=== PATIENT | female | born 1945 | race Caucasian/White ===

== ENCOUNTER 2025-02-14 12:42 | Emergency (ER) | payer MEDICARE, OTHER, SELFPAY ==
[2025-02-14 12:52] VITALS: BP 195/112
[2025-02-14 13:22] LABS: % Eosinophils 1.9 % (0-6); % Immature Granulocytes 0.4 % (0-0.5); % Lymphocytes 21.4 % (20.5-51.1); % Monocytes 8.2 % (1.7-9.3); % Neutrophils 67.1 % (42.2-75.2); Absolute Basophils 0.1 10^3/uL (0-0.2); Absolute Eosinophils 0.1 10^3/uL (0-0.7); Absolute Lymphocytes 1.5 10^3/uL (1.2-3.4); Absolute Monocytes 0.6 10^3/uL (0.1-0.6); Absolute Neutrophils 4.6 10^3/uL (1.4-6.5); Hematocrit 43.6 % (37.0-47.0); Hemoglobin 14.8 g/dL (12.0-16.0); Mean Corp Hgb Conc. 33.9 g/dL (33.0-37.0); Mean Corpuscular Hgb 31.8 pg (27.0-31.0); Mean Corpuscular Volume 93.6 fL (81.0-99.0); Mean Platelet Volume 10.1 fL (7.4-10.4); Nucleated Red Blood Cells % 0 %; Platelet Count 192 10^3/uL (130-400); Red Blood Cell Count 4.66 10^6/uL (4.20-5.40); Red Cell Dist. Width 13.6 % (11.5-14.5); White Blood Cell Count 6.8 10^3/uL (4.8-10.8)
[2025-02-14 13:31] LABS: ALT (SGPT) 27 U/L (0-35); AST (SGOT) 34 U/L (14-36); Albumin 4.3 g/dl (3.5-5.0); Alkaline Phosphatase 114 U/L (38-126); Blood Urea Nitrogen 16 mg/dl (7-17); Calcium 9.8 mg/dl (8.4-10.2); Carbon Dioxide 31 mmol/L (22-30); Chloride 104 mmol/L (98-107); Glucose 111 mg/dl (70-99); Potassium 4.2 mmol/L (3.5-5.1); Sodium 140 mmol/L (135-145); Total Bilirubin 0.9 mg/dl (0.2-1.3); Total Protein 7.1 g/dl (6.3-8.2); eGFR > 60.00
[2025-02-14 13:32] VITALS: BMI 31.6
[2025-02-14 13:41] VITALS: BP 164/96
[2025-02-14 13:43] LABS: Troponin I < 0.012 ng/ml
[2025-02-14 14:00] VITALS: BP 159/97
--- NOTE | 2025-02-14 14:15 | ED.GENMED ---
History of Present Illness
General
Chief Complaint: Chest Pain
Source: patient
Exam Limitations: none
Time Seen by Provider: 02/14/25 13:43
Nursing documentation reviewed up to this point in time: agreed with
History of Present Illness
History of Present Illness:
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 Patient states that she now
feels much improved compared to last night. Patient also notes intermittent episodes of neck pain as well. She denies any trauma to the head or neck. Patient states that she was looking at wedding venues all day yesterday with her daughter and
reports that she felt like her neck might have been strained at that time. Patient also concerned that there may be a problem with her pacemaker as the discomfort is surrounding where the pacemaker is. Patient has never had this before. Patient
has no history of coronary artery disease or [place]. Her java web services developer is Dr. Richards with [facility] and she last saw him 2 months ago and had normal stress testing and is due to see him again in 1 year. Patient denies any dizziness or
lightheadedness, denies any syncopal episodes. She states that the pain is not exertional and it will come and go at random. She denies any fainting spells difficulty walking. Patient states that she lives alone but has her daughter and her
friends and her Bible study group who come to check on her frequently.
Review of Systems
Review of Systems
All Other Systems: ROS reviewed and negative except as documented in HPI and ROS
Phy Exam
Physical Exam
Physical Exam:
General: Patient is well appearing and in no acute distress; non-toxic
Skin: Warm and dry, no rashes or lesions
Head: Normocephalic, atraumatic
Eyes: Sclera non-icteric. EOMs intact.
Neck: No midline cervical spinal tenderness to palpation, no paraspinal tenderness
Cardiac: Regular rate and rhythm, no murmurs, no tenderness palpation of external chest wall
Peripheral Vascular: No lower extremity swelling or edema. 2+ radial pulses bilaterally.
Pulm: Normal respiratory effort. No wheezes, rales, rhonchi.
Neuro: CN II-XII intact, no focal neurologic deficits.
Psychiatric: Appropriate mood and affect.
Scores
Heart Score for Chest Pain Patients
STEMI patient?: No
History: Slightly or Non-Suspicious
ECG: Normal
Age: >/= 65 years
Risk Factors: 1 or 2 Risk Factors
Troponin: </= Normal Limit
Heart Score for Chest Pain Patients: 3
Heart Score Risk: 2.5% MACE over next 6 weeks
Course
Orders/Labs/Results
Orders:
Orders
02/14/25 12:42
EKG [Electrocardiogram (*1)] Urgent
Reason for Study: Chest Pain
02/14/25 12:43
EKG- Treatment ONCE
02/14/25 13:02
Complete Blood Count/With Diff Urgent
Comprehensive Metabolic Panel Urgent
Troponin I Urgent
02/14/25 13:44
Interrogate Pacemaker- Treatment ONCE
02/14/25 14:02
CR Chest - 2 Views Urgent
Comment:
Reason For Exam: left sided chest discomfort around pacemaker
Abnormal Lab Results
02/14/25
13:02
MCH 31.8 H pg
(27.0-31.0)
Carbon Dioxide 31 H mmol/L
(22-30)
Glucose 111 H mg/dl
(70-99)
02/14/25 13:02
02/14/25 13:02
Vital Signs
Initial and Last Documented VS:
Initial Vital Signs
Temp Pulse Resp BP Pulse Ox
97.6 F 97 18 195/112 97
02/14/25 12:52 02/14/25 12:52 02/14/25 12:52 02/14/25 12:52 02/14/25 12:52
Last Documented Vital Signs
Temp Pulse Resp BP Pulse Ox
97.6 F 82 18 159/97 98
02/14/25 12:52 02/14/25 14:15 02/14/25 12:52 02/14/25 14:00 02/14/25 14:00
MDM/Problems Addressed
Differential Diagnosis Includes:
Differentials include ACS, costochondritis, GERD, paracervical strain, dysrhythmia, pacemaker lead detachment,
MDM/Problems Addressed:
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 Patient was concerned last night that she may have been having heart
attack. She has no history of coronary artery disease. She does follow closely with her java web services developer Dr. Richards at [facility]. On physical exam she is well-appearing no acute distress her chest pain is not reproducible and her lungs are clear
bilaterally. Her CBC and CMP are unremarkable. Her troponin is undetectable. Chest x-ray shows no acute cardiopulmonary abnormality. Patient on reassessment states that she is unsure if she still has the discomfort. I had her sit up from her
bed and observe her ambulate throughout her room and she reports that she feels well and does not noticing the discomfort any longer. Reviewed case and EKG with my attending. Patient stable for discharge, patient states that she will call her
java web services developer and her primary for follow-up appointments. Pain could be related to muscular issue, doubt ACS, doubt PE. Did also obtain pacemaker study which was negative for any dysrhythmia and showed a normal functioning pacemaker.
*Pulse Oximetry
Patient hypoxic: no
*EKG
Interpreted by ED Provider?: Yes
EKG Intrepretation Date: 02/14/25
Interpretation: normal
Comparison EKG: no comparison EKG present
Heart Rate: 89
Rate: normal
*Critical Care Note
Total Time (30-74mins, 75-104mins- exclusive of procedures): Not Applicable
Data Reviewed
Review of Other/Old Records Reveals: Records (Reviewed [facility], no previous ER physician documentation to review) and Discharge Summary (No discharge summaries in [facility] to review)
Source: patient and records
Patient Management
Escalation/DeEscalation of care consider admission/obs:
Admit not indicated, patient stable for discharge
Update Note
Update Note:
Patient's blood pressure elevated at 195/112 upon arrival, resolved to 159/97 without intervention. I did mention the patient that her blood pressure was elevated today and she should follow-up with her primary, patient states that she does take
lisinopril and metoprolol.
ED Attending Note
-
Portions of this chart may have been created with voice recognition software.� Occasional wrong word or��sound alike� substitutions may have occurred due to the inherent limitations of voice recognition software.
Discharge Plan
Departure
Patient Disposition: Home (Routine Discharge)
Date of Disposition: 02/14/25
Time of Disposition: 15:09
Patient with high blood pressure during this ER visit?: Yes
Condition: Good
Discharge Problem:
Chest pain
Instructions: Chest pain, BLOOD PRESSURE
Referrals:
UNKNOWN - PT DOES,NOT KNOW [Unknown Provider] -
Activity Restrictions/Additional Instructions:
Your chest x-ray demonstrated that your pacemaker leads were in place. Your pace maker study showed no evidence of abnormal heart rhythms and is functioning normally.
Please call your primary care provider tomorrow to schedule a follow-up appointment for 1 week.
PLEASE RETURN EMERGENCY DEPARTMENT SHOULD YOU EXPERIENCE ACUTE WORSENING OR SYMPTOMS, LIGHTHEADEDNESS, DIZZINESS, HEADACHE, FAINTING SPELLS, SHORTNESS OF BREATH, RETURN OF YOUR CHEST PAIN, WEAKNESS ON 1 SIDE BODY VERSUS OTHER, DIFFICULTY AMBULATE,
BACK PAIN, BELLY PAIN, FEVERS OR CHILLS, OR ANY OTHER SIGNS OR SYMPTOMS WORRISOME TO YOU.
Interventions
Interventions:
*Risk Screen - Suicide Last Done: 02/14/25 13:38
*General Assessment Last Done: 02/14/25 13:32
*Neglect/Abuse Screening Last Done: 02/14/25 13:38
*ED- Fall Risk Assessment Last Done: 02/14/25 13:32
*ED COVID-19 Vaccine History Last Done: 02/14/25 13:32
*Nursing Disposition Last Done: 02/14/25 15:21
ED- Cardiac Assessment Last Done: 02/14/25 13:32
Discharge Date and Time
Discharge Date/Time: 02/14/25 15:22
Print Language: AFGHAN
== END 2025-02-14 15:22 | disposition home or self-care (01) ==
LOC: EMR 12:42
PROVIDERS: EMERGENCY PHYSICIAN Emergency Medicine; FAMILY PHYSICIAN Internal Medicine
DX: R07.89 Other chest pain (principal); M54.2 Cervicalgia; Z86.73 Personal history of transient ischemic attack (TIA), and cerebral infarction without residual deficits; Z95.0 Presence of cardiac pacemaker
CPT/HCPCS: 99285; 71046; 80053; 84484; 85025; 93005